=== PATIENT | female | born 1980 | race Caucasian/White ===

== ENCOUNTER 2018-11-29 20:36 | Emergency (ER) | payer SELFPAY ==
[~2018-11-29] VITALS: Ht 167.6 cm; Wt 69.5 kg
[~2018-11-29 20:36] MED LIST: AMOXICILLIN875 MG OR; AUGMENTIN400 MG/5 M OR; BACTRIM DS1 TAB OR; BACTRIM DS1 TAB PO; CEPHALEXIN500 MG PO; DARVOCET N-100100 - OR; DARVOCET-N 100100 MG OR; DILAUDID 2MG2 MG/TA1 PO; DILAUDID8 MG PO; FLEXERIL OR; IBUPROFEN800 MG PO; LORTAB 1010 MG PO; LORTAB 5 OR; LORTAB 7.5 OR; LORTAB OR; MACROBID100 MG PO; MEDDOSEPAK OR; MELOXICAM7.5 MG OR; MOTRIN800 MG OR; NAPROSYN500 MG OR; NO HOME MEDS; NO MEDS; OXYCO/APAP1 TA5 OR; PERCOCET 5/325M1 TAB PO; PHENAZOPYRID200 MG OR; PRILOSEC OTC20 MG OR; PROMETHAZINE25 MG OR; ROBITUSSIN AC10 ML PO; ROXICODONE30 MG OR; ULTRAM50 MG OR; XANAX0.5 MG OR; XANAX2 MG OR; ZOFRAN ODT8 MG OR; ZOFRAN ODT8 MG PO
[2018-11-29] MEDS ORDERED: SEROQUEL25 MG PO (20:47)
[2018-11-29] MEDS ORDERED: PROZAC20 MG PO (20:48)
[2018-11-29] MEDS ORDERED: NAPROSYN500 MG PO (21:40)
[2018-11-29 21:42] VITALS: BP 144/78
== END 2018-11-29 21:42 | disposition home or self-care (01) | DRG 563 ==
LOC: ED 20:36
DX: S93.602A Unspecified sprain of left foot, initial encounter (principal); F41.9 Anxiety disorder, unspecified; F32.9 Major depressive disorder, single episode, unspecified; F17.200 Nicotine dependence, unspecified, uncomplicated; X58.XXXA Exposure to other specified factors, initial encounter; Y93.E1 Activity, personal bathing and showering; Y92.002 Bathroom of unspecified non-institutional (private) residence as the place of occurrence of the external cause

== ENCOUNTER 2019-10-03 19:48 | Emergency (ER) | payer SELFPAY ==
[~2019-10-03] VITALS: Ht 167.6 cm; Wt 75.0 kg
[~2019-10-03 19:48] MED LIST changes: +NAPROSYN500 MG PO; +PROZAC20 MG PO; +SEROQUEL25 MG PO
[2019-10-03 21:59] LABS: URINE BILIRUBIN - DIPSTICK NEGATIVE (NEGATIVE); URINE BLOOD DIPSTICK NEGATIVE (NEGATIVE); URINE COLOR YELLOW; URINE GLUCOSE - DIPSTICK NEGATIVE (NEGATIVE); URINE KETONE NEGATIVE (NEGATIVE); URINE LEUK ESTERASE NEGATIVE (NEGATIVE); URINE NITRITE - DIPSTICK NEGATIVE (Negative); URINE PROTEIN - DIPSTICK NEGATIVE (NEG-TRACE); URINE SPECIFIC GRAVITY 1.025
[2019-10-03 22:03] LABS: BARBITURATES NEGATIVE (NEGATIVE); COCAINE NEGATIVE (NEGATIVE); METHADONE NEGATIVE (NEGATIVE); TETRAHYDROCANNABIONOL NEGATIVE (NEGATIVE); TRICYLIC ANTIDEPRESSANTS NEGATIVE (NEGATIVE)
[2019-10-03 22:04] LABS: OXCYCODONE NEGATIVE (NEGATIVE)
[2019-10-03] MEDS ORDERED: TAM75CAP PO (22:37)
[2019-10-03 22:47] VITALS: BP 181/104
== END 2019-10-03 22:46 | disposition home or self-care (01) | DRG 153 ==
LOC: ED 19:48
PROVIDERS: Emergency Medicine
DX: J11.1 Influenza due to unidentified influenza virus with other respiratory manifestations (principal); I10 Essential (primary) hypertension; F17.210 Nicotine dependence, cigarettes, uncomplicated; Z53.20 Procedure and treatment not carried out because of patient's decision for unspecified reasons

== ENCOUNTER 2019-12-07 | Emergency (ER) | payer SELFPAY ==
[~2019-12-07] MED LIST changes: +TAM75CAP PO
--- NOTE | 2019-12-07 00:39 | NUR ---
BREATHING TREATMENT GIVEN.
[2019-12-07 00:59] LABS: HEMATOCRIT 37.1 % (37.0-47.0); HEMOGLOBIN 11.4 g/dl (12.0-16.0); IMMATURE GRANULOCYTES 1.3 % (0.0-5.0); MEAN CELL VOLUME 80.7 fL CALC (80.0-100.0); MEAN CORPUSCULAR HGB 24.8 pG CALC (26.0-32.0); MEAN CORPUSCULAR HGB CONC 30.7 g/L CALC (32.0-36.0); NEUT# 5.75 thou/uL (2.00-7.15); RED BLOOD COUNT 4.6 mill/uL (4.20-5.60); RED CELL DISTRI WIDTH 16.2 % (11.5-15.5)
[2019-12-07] MEDS ORDERED: TESSALON PER100 MG PO (01:38)
[2019-12-07] MEDS ORDERED: VOLTAREN - GENE75 MG PO (01:38)
[2019-12-07] MEDS ORDERED: VENTOLIN HFA IN (01:38)
== END 2019-12-07 01:58 | disposition home or self-care (01) | DRG 866 ==
PROVIDERS: Family Medicine
DX: B34.9 Viral infection, unspecified (principal); R09.1 Pleurisy; F17.210 Nicotine dependence, cigarettes, uncomplicated

== ENCOUNTER 2020-06-10 11:50 | Emergency (ER) | payer SELFPAY ==
[~2020-06-10] VITALS: Ht 167.6 cm; Wt 75.0 kg
[~2020-06-10 11:50] MED LIST changes: +TESSALON PER100 MG PO; +VENTOLIN HFA IN; +VOLTAREN - GENE75 MG PO
[2020-06-10 13:09] LABS: URINE BLOOD DIPSTICK NEGATIVE (NEGATIVE); URINE COLOR YELLOW; URINE GLUCOSE - DIPSTICK NEGATIVE (NEGATIVE); URINE KETONE TRACE mg/dL (NEGATIVE); URINE NITRITE - DIPSTICK NEGATIVE (Negative); URINE PROTEIN - DIPSTICK TRACE mg/dL (NEG-TRACE); URINE SPECIFIC GRAVITY >=1.030; URINE UROBILINOGEN - DIPSTICK 0.2 E.U./dL (0.2)
[2020-06-10 13:11] LABS: URINE BILIRUBIN - DIPSTICK SMALL (NEGATIVE); URINE LEUK ESTERASE MODERATE (NEGATIVE)
[2020-06-10 13:12] LABS: URINE BACTERIA FEW hpf; URINE EPITHELIAL CELLS MODERATE EPI/hpf (0-FEW)
[2020-06-10 13:33] LABS: HEMOGLOBIN 10.8 g/dl (12.0-16.0); IMMATURE GRANULOCYTES 0.4 % (0.0-5.0); MEAN CELL VOLUME 78.5 fL CALC (80.0-100.0); MEAN CORPUSCULAR HGB 24.2 pG CALC (26.0-32.0); MEAN CORPUSCULAR HGB CONC 30.9 g/dL CAL (32.0-36.0); NEUT# 6.11 thou/uL (2.00-7.15); RED BLOOD COUNT 4.46 mill/uL (4.20-5.60); RED CELL DISTRI WIDTH 16.5 % (11.5-15.5)
[2020-06-10 13:50] LABS: ALBUMIN 4.1 g/dL (3.2-5.0); ALKALINE PHOSPHATASE 95 u/l (38-126); ANION GAP 9 (6-22 (CALC)); BUN 9 mg/dL (7-17); BUN/CREATININE RATIO 10 (12-20 (CALC)); CARBON DIOXIDE 29 mmol/l (22-30); CHLORIDE 100 mmol/l (95-108); CREATININE 0.9 mg/dL (0.5-1.0); GFR > 60 ML/MIN (>=60 (CALC)); GFR FOR AFR.AMER. > 60 ML/MIN (>=60 (CALC)); LIPASE 38 u/l (23-300); POTASSIUM 4.2 mmol/l (3.5-5.1); SGOT/AST 37 u/l (14-36); SODIUM 134 mmol/l (137-146)
[2020-06-10 13:54] LABS: HCG SERUM/URINE (NEG/POS) NEGATIVE (NEGATIVE)
[2020-06-10 13:55] LABS: BILIRUBIN, TOTAL 0.4 mg/dL (0.0-1.4); TOTAL PROTEIN 7.1 g/dL (6.3-8.2)
[2020-06-10] MEDS ORDERED: AMOXICILLIN875 MG PO (15:07)
[2020-06-10] MEDS ORDERED: PYRIDIUM200 MG PO (15:09)
[2020-06-10 15:12] VITALS: BP 159/100
== END 2020-06-10 15:17 | disposition home or self-care (01) | DRG 153 ==
LOC: ED 11:50
DX: J02.9 Acute pharyngitis, unspecified (principal); N39.0 Urinary tract infection, site not specified; F17.210 Nicotine dependence, cigarettes, uncomplicated; B19.20 Unspecified viral hepatitis C without hepatic coma; Z20.828 Contact with and (suspected) exposure to other viral communicable diseases

== ENCOUNTER 2020-09-25 21:54 | Emergency (ER) | payer SELFPAY ==
[~2020-09-25] VITALS: Ht 167.6 cm; Wt 72.7 kg
[~2020-09-25 21:54] MED LIST changes: +AMOXICILLIN875 MG PO; +PYRIDIUM200 MG PO
[2020-09-25 22:39] LABS: HEMATOCRIT 33.2 % (37.0-47.0); HEMOGLOBIN 10.4 g/dl (12.0-16.0); IMMATURE GRANULOCYTES 0.5 % (0.0-5.0); MEAN CELL VOLUME 75.6 fL CALC (80.0-100.0); MEAN CORPUSCULAR HGB 23.7 pG CALC (26.0-32.0); MEAN CORPUSCULAR HGB CONC 31.3 g/dL CAL (32.0-36.0); NEUT# 5.52 thou/uL (2.00-7.15); RED BLOOD COUNT 4.39 mill/uL (4.20-5.60)
[2020-09-25 23:42] VITALS: BP 142/72
== END 2020-09-25 23:42 | disposition home or self-care (01) | DRG 195 ==
LOC: ED 21:54
PROVIDERS: Family Medicine
DX: J10.1 Influenza due to other identified influenza virus with other respiratory manifestations (principal); F41.9 Anxiety disorder, unspecified; F32.9 Major depressive disorder, single episode, unspecified; F17.200 Nicotine dependence, unspecified, uncomplicated; B19.20 Unspecified viral hepatitis C without hepatic coma; Z20.828 Contact with and (suspected) exposure to other viral communicable diseases

== ENCOUNTER 2023-11-18 23:25 | Emergency (ER) | payer SELFPAY ==
[~2023-11-18] VITALS: Ht 167.6 cm; Wt 70.0 kg
[2023-11-19 00:56] VITALS: BP 129/76
[2023-11-19 01:00] VITALS: BP 122/76
[2023-11-19 01:14] VITALS: BP 129/76
[2023-11-19] MEDS ORDERED: OMEPRAZOLE DR40 MG (09:01)
[2023-11-19] MEDS ORDERED: LISINOPRIL2.5 MG PO (09:02)
== END 2023-11-19 02:15 | disposition left against medical advice (07) | DRG 951 ==
LOC: ED 23:25
DX: Z53.21 Procedure and treatment not carried out due to patient leaving prior to being seen by health care provider (principal)